=== PATIENT | female | born 1990 | race Two or more races ===

== ENCOUNTER 2022-07-27 23:50 | Inpatient (IN) | payer OTHER ==
[~2022-07-27] VITALS: Ht 162.6 cm; Wt 63.5 kg
[2022-07-27] MEDS ORDERED: PRENATAL TABLE1 EAC6 PO (23:53)
== END 2022-07-30 09:01 | disposition home or self-care (01) | DRG 768 ==
LOC: LDR 23:50 → OB/GYN 23:50
PROVIDERS: ADMIT Obstetrics & Gynecology; ATTEND Obstetrics & Gynecology
PROC: 4A1HXCZ Monitoring of Products of Conception, Cardiac Rate, External Approach (ICD-10-PCS; 2022-07-27)
PROC: 10E0XZZ Delivery of Products of Conception, External Approach (ICD-10-PCS; principal; 2022-07-28)
PROC: 0UQC7ZZ Repair Cervix, Via Natural or Artificial Opening (ICD-10-PCS; 2022-07-28)
DX: O71.3 Obstetric laceration of cervix (principal); Z37.0 Single live birth; Z3A.37 37 weeks gestation of pregnancy; Z20.822 Contact with and (suspected) exposure to COVID-19

== ENCOUNTER 2022-12-30 06:00 | Day surgery (SDC) | payer OTHER ==
[~2022-12-30 06:00] MED LIST: PRENATAL TABLE1 EAC6 PO
== END 2022-12-30 14:20 | disposition home or self-care (01) ==
LOC: CIR.AMB 06:00
PROVIDERS: ATTEND Obstetrics & Gynecology Gynecology
DX: O34.31 Maternal care for cervical incompetence, first trimester (principal); Z3A.12 12 weeks gestation of pregnancy; Z20.822 Contact with and (suspected) exposure to COVID-19; Z88.6 Allergy status to analgesic agent

== ENCOUNTER 2023-06-16 11:04 | Outpatient (CLI) | payer OTHER | END 2023-06-16 12:26 | disposition home or self-care (01) | LOC: NST 11:04 | PROVIDERS: ATTEND Obstetrics & Gynecology Maternal & Fetal Medicine | DX: Z34.83 Encounter for supervision of other normal pregnancy, third trimester (principal) ==